=== PATIENT | female | born 1950 | race Two or more races ===

== ENCOUNTER 2025-03-03 07:03 | Inpatient (IN) | payer MEDICAID, OTHER ==
[~2025-03-03] VITALS: Ht 152.4 cm; Wt 87.5 kg
--- NOTE | 2025-03-03 07:22 | ED.PDOC ---
History of Present Illness HPI Comments 74 year old female presents to the ED via EMS with a chief complaint of generalized weakness onset 2 days. Per EMS, patient has been experiencing generalized weakness the past 2 days, worsen this morning, was not able to ambulate without assistance. She is also experiencing constipation, polyuria, nausea. Upon EMS arrival BP was 200/100, upon ED arrival 174 systolic. PMHx HTN, DM. Denies vomiting, diarrhea, abdominal pain, chest pain, shortness of breath, dizziness, fevers, chills, hematuria, dysuria. No other symptoms or modifying factors present at this time. 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 LEAD History: Denies all HUMAN FACTORS ADVISOR LEAD Hx Family History Family History: Reviewed,noncontributory to illness, No family hx of Cancer, No family hx of DM, No family hx of Heart mike, No family hx of HTN, No family hx ofKidney mike, No family hx of Liver mike, No family hx of Lung mike, No family hx of Stroke Social History Smoker: Non-Smoker Alcohol: Denies ETOH Use Drugs: Denies Drug Use Lives In: Home Constitutional: reports: weakness; denies: chills, diaphoresis, fatigue, fever, malaise, sweats, others EENTM: denies: blurred vision, double vision, ear bleeding, ear discharge, ear drainage, ear pain, ear ringing, eye pain, eye redness, hearing loss, mouth pain, mouth swelling, nasal discharge, nose bleeding, nose congestion, nose pain, photophobia, tearing, throat pain, throat swelling, voice changes, others Respiratory: denies: cough, hemoptysis, orthopnea, SOB at rest, shortness of breath, SOB with excertion, stridor, wheezing, others Cardiovascular: denies: chest pain, dizzy spells, diaphoresis, Dyspnea on exertion, edema, irregular heart beat, left arm pain, lightheadedness, palpitations, PND, syncope, others Gastrointestinal: reports: constipated, nausea; denies: abdomen distended, abdominal pain, blood streaked bowels, diarrhea, dysphagia, difficulty swallowing, hematemesis, melena, poor appetite, poor fluid intake, rectal bleeding, rectal pain, vomiting, others Genitourinary: reports: others (polyuria); denies: abnormal vagina bleeding, burning, dyspareunia, dysuria, flank pain, frequency, hematuria, incontinence, pain, , vagina discharge, urgency Neurological: reports: weakness; denies: dizziness, fainting, headache, left sided numbness, left sided weakness, numbness, paresthesia, pre-existing deficit, right sided numbness, right sided weakness, seizure, speech problems, tingling, tremors, others Musculoskeletal: denies: back pain, gout, joint pain, joint swelling, muscle pain, muscle stiffness, neck pain, others Integumetry: denies: bruises, change in color, change in hair/nails, dryness, laceration, lesions, lumps, rash, wounds, others Allergic/Immunocompromised: denies: Difficulty Healing, Frequent Infections, Hives, Itching, others Hematologic/Lymphatic: denies: anemia, blood clots, easy bleeding, easy bruising, swollen glands, others Endocrine: denies: excessive hunger, excessive sweating, excessive thirst, excessive urination, flushing, intolerance to cold, intolerance to heat, unexplained weight gain, unexplained weight loss, others Psychiatric: denies: anxiety, bipolar disorder, depression, hopeless, panic disorder, schizophrenia, sleepless, suicidal, others All Other Systems: Reviewed and Negative Physical Exam General Appearance: Normal HEENT: Normal ENT Inspection, Pharynx Normal, TMs Normal Neck: Full Range of Motion, Non-Tender, Normal, Normal Inspection Respiratory: Chest Non-Tender, Lungs Clear, No Accessory Muscle Use, No Respiratory Distress, Normal Breath Sounds Cardiovascular: No Edema, No JVD, No Murmur, No Gallop, Normal Peripheral Pulses, Regular Rate/Rhythm Breast Exam: Deferred Gastrointestinal: No Organomegaly, Non Tender, No Pulsatile Mass, Normal Bowel Sounds, Soft Genitalia: Deferred Pelvic: Deferred Rectal: Deferred Extremities: No calf tenderness, Normal capillary refill, Normal inspection, Normal range of motion, Non-tender, No pedal edema Musculoskeletal : Apperance: Normal 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 Was a procedure done?: No Differential Dx Considerations may include: deconditioning, hyperglycemia, hypercalcemia, uti, dehydration, electrolyte disorders X-Ray, Labs, Meds, VS Vital Signs Date Time Temp Pulse Resp B/P (MAP) Pulse Ox O2 Delivery O2 Flow Rate FiO2 03/03/25 10:00 77 16 145/54 (84) 98 03/03/25 09:23 98 Room Air* 0 03/03/25 09:11 71 03/03/25 09:00 97.8 68 16 153/53 (86) 98 97.8 03/03/25 08:20 85 21 97 Room Air* 0 21 03/03/25 08:20 98.2 85 21 152/73 (99) 97 98.2 03/03/25 07:12 98.2 84 20 175/77 (109) 98 98.2 03/03/25 07:09 83 Lab Test 03/03/25 10:26 03/03/25 08:21 03/03/25 07:30 03/03/25 07:21 Range/Units Troponin I High Sensitivity 6 5 5 </=34 ng/L White Blood Count 9.2 4.4-10.8 10^3/uL Red Blood Count 4.28 4.0-5.20 10^6/uL Hemoglobin 12.2 12.2-16.2 g/dL Hematocrit 36.0 36.0-46.0 % Mean Corpuscular Volume 84.2 80.0-100.0 fL Mean Corpuscular Hemoglobin 28.4 28.0-32.0 pg Mean Corpuscular Hemoglobin Concent 33.8 32.0-36.0 g/dL Red Cell Distribution Width 14.8 H 11.8-14.3 % Platelet Count 226 140-450 10^3/uL Mean Platelet Volume 8.6 6.9-10.8 fL Neutrophils (%) (Auto) 68.0 37.0-80.0 % Lymphocytes (%) (Auto) 24.0 10.0-50.0 % Monocytes (%) (Auto) 6.5 0.0-12.0 % Eosinophils (%) (Auto) 1.2 0.0-7.0 % Basophils (%) (Auto) 0.3 0.0-2.0 % Neutrophils # (Auto) 6.2 1.6-8.6 10 ^3/uL Lymphocytes # (Auto) 2.2 0.4-5.4 10 ^3/uL Monocytes # (Auto) 0.6 0-1.3 10 ^3/uL Eosinophils # (Auto) 0.1 0-0.8 10 ^3/uL Basophils # (Auto) 0 0-0.2 10 ^3/uL Nucleated Red Blood Cells 0.0 % Sodium Level 144 136-145 mmol/L Potassium Level 4.2 3.5-5.1 mmol/L Chloride Level 108 H 98-107 mmol/L Carbon Dioxide Level 23 20-31 mmol/L Anion Gap 13 5-15 Blood Urea Nitrogen 19 9-23 mg/dL Creatinine 0.91 0.550-1.02 mg/dL Glomerular Filtration Rate Calc 66 >90 mL/min BUN/Creatinine Ratio 20.9 H 10.0-20.0 Serum Glucose 165 H 74-106 mg/dL Calcium Level 10.1 8.7-10.4 mg/dL Urine Color Colorless Yellow Urine Clarity Clear Clear Urine pH 6.0 5.0-9.0 Urine Specific [place] 1.005 1.001-1.035 Urine Protein Negative Negative Urine Ketones Negative Negative Urine Blood Negative Negative /uL Urine Nitrite Negative Negative Urine Bilirubin Negative Negative Urine Urobilinogen Normal Negative mg/dL Urine Leukocyte Esterase Negative Negative /uL Urine RBC <1 0 - 4 /hpf Urine Microscopic WBC < 1 0-5 /HPF Urine Squamous Epithelial Cells Few <5 /hpf Urine Bacteria Few H None Seen /hpf Urine Glucose 1+ H Normal mg/dL Urine Opiates Screen Neg NEGATIVE Urine Fentanyl Screen Neg NEGATIVE Urine Barbiturates Screen Neg NEGATIVE Urine Phencyclidine Screen Neg NEGATIVE Urine Amphetamines Screen Neg NEGATIVE Urine Benzodiazepines Screen Neg NEGATIVE Urine Cocaine Screen Neg NEGATIVE Urine Cannabinoids Screen Neg NEGATIVE Current Medications Medications (Trade) Dose Ordered Sig/Lisbeth Route Start Time Stop Time Status Last Admin Sodium Chloride 1,000 ml @ 150 mls/hr Q6H40M ONCE IV 03/03/25 07:15 03/03/25 13:54 DC 03/03/25 07:40 [facility] [id number] [place] [id number] Ph: [phone] DIAGNOSTIC IMAGING Diagnostic Imaging Report : [id number] Signed PATIENT: UMAIR CAVANAUGH ACCT: [id number] UNIT: [id number] : 1950 LOC: ER ROOM / BED: / AGE / SEX: 74 / F ADM STATUS: REG ER SERVICE 4 ORDERING PHYSICIAN: NITHYA HENRIQUEZ MD PROCEDURE(s): CXRP - CHEST PORTABLE REASON: weakness ORDER NUMBER(s): [id number], ACCESSION NUMBER(s): [id number] CHEST RADIOGRAPH Indication: weakness Technique: Single frontal view of the chest was obtained COMPARISON: None FINDINGS: Lines and Tubes: None Lungs: Clear Pleura: No effusion. No pneumothorax. Cardiomediastinal contours: Unremarkable Bones: Unremarkable IMPRESSION: No acute disease. ATED BY: BRANDON MILLER MD DICTATED DATE/TIME: 03/03/25749 SIGNED BY: BRANDON MILLER MD SIGNED DATE/TIME: 03/03/25749 CC: Time of 1ST Reevaluation: 07:45 Reevaluation 1ST: Unchanged Patient Education/Counseling: Diagnosis, Treatment, Prognosis Family Education/Counseling: No Family Present Additional Information The following tests were ordered, and results were reviewed by me: EKG, TROP-x3, CBC, UA, BMP, XY CHEST Additional Information was gathered from interviewing the following independent historians: EMS, son I reviewed and agreed with the following test results read by other providers: XY CHEST I discussed treatment and results with medical personnel and: patient, son Comprehensive systems review obtained and negative except for what is stated in the HPI. SEPSIS Sepsis Screen Physician Orders Electrocardigram (03/03/25 07:11) Chest Portable (03/03/25 07:15) Accucheck (03/03/25 07:15) Vital Signs Date Time Temp Pulse Resp B/P (MAP) Pulse Ox O2 Delivery O2 Flow Rate FiO2 03/03/25 10:00 77 16 145/54 (84) 98 03/03/25 09:23 98 Room Air* 0 21 03/03/25 09:11 71 03/03/25 09:00 97.8 68 16 153/53 (86) 98 97.8 03/03/25 08:20 85 21 97 Room Air* 0 21 03/03/25 08:20 98.2 85 21 152/73 (99) 97 98.2 03/03/25 07:12 98.2 84 20 175/77 (109) 98 98.2 03/03/25 07:09 83 Laboratory Tests Test 03/03/25 07:30 White Blood Count 9.2 10^3/uL (4.4-10.8) Medications Medications Dose Ordered Sig/Lisbeth Route Start Time Stop Time Status Last Admin Dose Admin Sodium Chloride 1,000 ml @ 150 mls/hr Q6H40M ONCE IV 03/03/25 07:15 03/03/25 13:54 DC 03/03/25 07:40 Departure 1 Departure Time of Disposition: 14:01 Impression: Primary Impression: Generalized weakness Additional Impressions: Polyuria Poorly-controlled hypertension Disposition: ADMITTED INPATIENT Admit to: Med Surg Condition: Stable Discharged With: Self Critical Care Note Critical Care Time?: No Stability Stability form required: No I personally scribed for NITHYA HENRIQUEZ MD ([email or web address]) on 03/03/25 at 07:22. Electronically submitted by Barb Schmidt ([email or web address]). I personally scribed for NITHYA HENRIQUEZ MD ([email or web address]) on 03/03/25 at 07:23. Electronically submitted by Barb Schmidt ([email or web address]). I personally scribed for NITHYA HENRIQUEZ MD ([email or web address]) on 03/03/25 at 08:01. Electronically submitted by Barb Schmidt ([email or web address]). NITHYA HENRIQUEZ MD Mar 03, 2025 07:22
[2025-03-03] MEDS: SODIUM CHLORIDE 0.9% 1,000 ML IV ONE (07:40)
[2025-03-03 07:45] LABS: Basophils # (auto) 0 10 ^3/uL (0-0.2); Basophils % (auto) 0.3 % (0.0-2.0); Eosinophils # (auto) 0.1 10 ^3/uL (0-0.8); Eosinophils % (auto) 1.2 % (0.0-7.0); Hemoglobin 12.2 g/dL (12.2-16.2); Lymphocytes # (auto) 2.2 10 ^3/uL (0.4-5.4); Mean Corpuscular Hemoglobin 28.4 pg (28.0-32.0); Mean Corpuscular Hgb Conc. 33.8 g/dL (32.0-36.0); Mean Corpuscular Volume 84.2 fL (80.0-100.0); Monocytes # (auto) 0.6 10 ^3/uL (0-1.3); Monocytes % (auto) 6.5 % (0.0-12.0); Neutrophils # (auto) 6.2 10 ^3/uL (1.6-8.6); Platelet Count (auto) 226 10^3/uL (140-450); Red Blood Cells 4.28 10^6/uL (4.0-5.20); Red Cell Distribution Width 14.8 % (11.8-14.3); White Blood Cell 9.2 10^3/uL (4.4-10.8)
[2025-03-03 07:50] LABS: Potassium 4.2 mmol/L (3.5-5.1); Sodium 144 mmol/L (136-145)
[2025-03-03 07:51] LABS: Anion Gap 13 (5-15); Calcium 10.1 mg/dL (8.7-10.4); Carbon Dioxide 23 mmol/L (20-31)
--- NOTE | 2025-03-03 07:53 | DVH ---
CHEST RADIOGRAPH Indication: weakness Technique: Single frontal view of the chest was obtained COMPARISON: None FINDINGS: Lines and Tubes: None Lungs: Clear Pleura: No effusion. No pneumothorax. Cardiomediastinal contours: Unremarkable Bones: Unremarkable IMPRESSION: No acute disease.
[2025-03-03 07:56] LABS: BUN/Creatinine Ratio 20.9 (10.0-20.0); Blood Urea Nitrogen 19 mg/dL (9-23); Chloride 108 mmol/L (98-107); Glucose 165 mg/dL (74-106)
[2025-03-03 08:20] VITALS: PULSE 85; RESP 21; O2SAT 97
[2025-03-03 10:53] LABS: Urine Bacteria FEW /hpf (None Seen); Urine Blood Negative /uL (Negative); Urine Clarity Clear (Clear); Urine Color Colorless (Yellow); Urine Protein, UAD Negative (Negative); Urine Specific Gravity 1.005 (1.001-1.035); Urine Squamous Epithelial Cell FEW /hpf (<5); Urine Urobilinogen Normal (Negative); Urine WBC < 1 /HPF (0-5)
[2025-03-03] MEDS ORDERED: HYDROcodone-ACET 5/325MG TAB PO PRN (11:30)
[2025-03-03] MEDS ORDERED: ONDANSETRON HCL 4 MG/2 ML VIAL IV PRN (11:30)
[2025-03-03] MEDS ORDERED: DEXTROSE (50%) 50ML SYRG IV PRN (11:30)
[2025-03-03] MEDS ORDERED: ACETAMINOPHEN 325 MG TAB PO PRN (11:30)
--- NOTE | 2025-03-03 11:54 | DVHHP2 ---
History of Present Illness History of Present Illness 74 year old female PMHx HTN, DM presents to the ED via EMS with a chief complaint of generalized weakness with near syncope onset 1 night. Per EMS, patient has been experiencing generalized weakness the past 2 days, worsen this morning, was not able to ambulate without assistance. During assisstance ambulating, she experienced near syncope/presyncope event prompting EMS call. 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 She is also experiencing constipation, polyuria, nausea. Upon EMS arrival BP was 200/100, upon ED arrival 174 systolic. Denies vomiting, diarrhea, abdominal pain, chest pain, shortness of breath, dizziness, fevers, chills, hematuria, dysuria. No other symptoms or modifying factors present at this time. Review of Systems Allergies: Coded Allergies: NO KNOWN ALLERGIES (Unverified , 03/03/25) Exam Vital Signs Vital Signs Date Time Temp Pulse Resp B/P (MAP) Pulse Ox O2 Delivery O2 Flow Rate FiO2 03/03/25 10:00 77 16 145/54 (84) 98 03/03/25 09:23 Room Air* 0 21 03/03/25 09:00 97.8 97.8 Exam GEN: Healthy appearing, well-developed, NAD. HEENT: NC/AT; MMM. CV: RRR, no m/r/g. LUNGS: CTAB, no w/r/c. ABD: Soft, NT/ND, NBS, no masses or organomegaly. EXT: skin Warm, well perfused. no rashes. No clubbing, cyanosis, or edema. NEURO: Ambulating with no limitations. No focal deficits. Labs/Xrays Labs Test 03/03/25 10:26 03/03/25 07:30 03/03/25 07:21 Range/Units Troponin I High Sensitivity 6 </=34 ng/L White Blood Count 9.2 4.4-10.8 10^3/uL Red Blood Count 4.28 4.0-5.20 10^6/uL Hemoglobin 12.2 12.2-16.2 g/dL Hematocrit 36.0 36.0-46.0 % Mean Corpuscular Volume 84.2 80.0-100.0 fL Mean Corpuscular Hemoglobin 28.4 28.0-32.0 pg Mean Corpuscular Hemoglobin Concent 33.8 32.0-36.0 g/dL Red Cell Distribution Width 14.8 H 11.8-14.3 % Platelet Count 226 140-450 10^3/uL Mean Platelet Volume 8.6 6.9-10.8 fL Neutrophils (%) (Auto) 68.0 37.0-80.0 % Lymphocytes (%) (Auto) 24.0 10.0-50.0 % Monocytes (%) (Auto) 6.5 0.0-12.0 % Eosinophils (%) (Auto) 1.2 0.0-7.0 % Basophils (%) (Auto) 0.3 0.0-2.0 % Neutrophils # (Auto) 6.2 1.6-8.6 10 ^3/uL Lymphocytes # (Auto) 2.2 0.4-5.4 10 ^3/uL Monocytes # (Auto) 0.6 0-1.3 10 ^3/uL Eosinophils # (Auto) 0.1 0-0.8 10 ^3/uL Basophils # (Auto) 0 0-0.2 10 ^3/uL Nucleated Red Blood Cells 0.0 % Sodium Level 144 136-145 mmol/L Potassium Level 4.2 3.5-5.1 mmol/L Chloride Level 108 H 98-107 mmol/L Carbon Dioxide Level 23 20-31 mmol/L Anion Gap 13 5-15 Blood Urea Nitrogen 19 9-23 mg/dL Creatinine 0.91 0.550-1.02 mg/dL Glomerular Filtration Rate Calc 66 >90 mL/min BUN/Creatinine Ratio 20.9 H 10.0-20.0 Serum Glucose 165 H 74-106 mg/dL Calcium Level 10.1 8.7-10.4 mg/dL Urine Color Colorless Yellow Urine Clarity Clear Clear Urine pH 6.0 5.0-9.0 Urine Specific [place] 1.005 1.001-1.035 Urine Protein Negative Negative Urine Ketones Negative Negative Urine Blood Negative Negative /uL Urine Nitrite Negative Negative Urine Bilirubin Negative Negative Urine Urobilinogen Normal Negative mg/dL Urine Leukocyte Esterase Negative Negative /uL Urine RBC <1 0 - 4 /hpf Urine Microscopic WBC < 1 0-5 /HPF Urine Squamous Epithelial Cells Few <5 /hpf Urine Bacteria Few H None Seen /hpf Urine Glucose 1+ H Normal mg/dL Assessment/Plan Assessment/Plan Presyncope/near syncope Generalized Weakness Poorly controlled hypertension Diabetes mellitus - TSH, blood pressure monitoring - telemetry, EKG - PT eval - orthostatics checks - continue home meds - blood pressure control and monitoring - IV fluids maintenance - hold oral diabetic medications, sliding scale insulin a.c. HS Low carb diabetic diet GI prophylaxis needed tolerating p.o. Lovenox 40 for DVT prophylaxis Tele Full code Plan discussed with: Patient Date of Service: Mar 03, 2025 Billing Provider: FABRICIO OLMEDO MD Common Visit Codes: 58097-GULBADS INP/OBS CARE (HIGH) Secondary Visit Codes: 79221-UQFRSLPH CARE PLAN 30 MINUTES FABRICIO OLMEDO MD Mar 03, 2025 11:54
[2025-03-03 12:23] LABS: Amphetamine Screen, Urine Neg (NEGATIVE); Barbiturate Scree,Urine Neg (NEGATIVE); Benzodiazephine Screen, Urine Neg (NEGATIVE); Cannabinoid Screen, Urine Neg (NEGATIVE); Cocaine Screen, Urine Neg (NEGATIVE); Opiate Scree,Urine Neg (NEGATIVE); Phencyclidine Screen, Urine Neg (NEGATIVE)
[2025-03-03] MEDS: InsuLIN REG 1unit/0.01ml Soln (100units/ml) SC SCH (14:48)
[2025-03-03] MEDS: ACCU-CHEK COMFORT CURVE STRIP VI SCH (14:51)
[2025-03-03 16:54] VITALS: BP 153/57; PULSE 66; PULSE 69; RESP 18; TEMP 98.4; O2SAT 95
[2025-03-03] MEDS ORDERED: METF-372 PO (17:59)
[2025-03-03 20:00] VITALS: PULSE 59; PULSE 80; RESP 16
[2025-03-03] MEDS ORDERED: LOSA-534 PO (21:54)
[2025-03-03] MEDS ORDERED: AMLO1TAB22 PO (21:54)
[2025-03-04 01:00] VITALS: BP 119/58; PULSE 60; RESP 19; TEMP 97.8; O2SAT 92
[2025-03-04 05:00] VITALS: BP 129/66; PULSE 65; RESP 17; TEMP 98.5; O2SAT 93
--- NOTE | 2025-03-04 05:48 | ECG ---
[facility] Test Date: 2025-03-03 Test Time: 07:09:13 Pat Name: UMAIR CAVANAUGH Department: ED Room: 0278T B Gender: F Plate Filler: BOLA : 1950 Requested By: EMERGENCY EMERGENCY Order Number: [id number] Reading MD: Ancelmo Marshall Measurements Intervals [place] Rate: 83 P: 41 AR: 161 QRS: 54 QRSD: 76 T: 31 QT: 362 QTc: 426 Interpretive Statements Sinus rhythm Anteroseptal infarct, old Electronically Signed On 03-05-2025 22:45:24 PDT by Ancelmo Marshall Please click the below link to view image of tracing.
[2025-03-04 06:50] LABS: Basophils # (auto) 0 10 ^3/uL (0-0.2); Basophils % (auto) 0.1 % (0.0-2.0); Eosinophils # (auto) 0.1 10 ^3/uL (0-0.8); Eosinophils % (auto) 2.1 % (0.0-7.0); Hematocrit 34.8 % (36.0-46.0); Hemoglobin 11.7 g/dL (12.2-16.2); Lymphocytes # (auto) 2.3 10 ^3/uL (0.4-5.4); Lymphocytes % (auto) 35.8 % (10.0-50.0); Mean Corpuscular Hemoglobin 28.6 pg (28.0-32.0); Mean Corpuscular Hgb Conc. 33.6 g/dL (32.0-36.0); Mean Corpuscular Volume 85.1 fL (80.0-100.0); Monocytes # (auto) 0.5 10 ^3/uL (0-1.3); Monocytes % (auto) 7.2 % (0.0-12.0); Neutrophils # (auto) 3.6 10 ^3/uL (1.6-8.6); Neutrophils % (auto) 54.8 % (37.0-80.0); Nucleated Red Blood Cells % 0.1 %; Platelet Count (auto) 203 10^3/uL (140-450); Red Blood Cells 4.09 10^6/uL (4.0-5.20); Red Cell Distribution Width 14.5 % (11.8-14.3); White Blood Cell 6.5 10^3/uL (4.4-10.8)
[2025-03-04 07:00] LABS: Alanine Aminotransferase 22 U/L (7-40); Alkaline Phosphatase 57 U/L (46-116); Anion Gap 9 (5-15); Aspartate Aminotransferase 26 U/L (<34); BUN/Creatinine Ratio 18.7 (10.0-20.0); Bilirubin, Total 0.5 mg/dL (0.2-1.0); Blood Urea Nitrogen 17 mg/dL (9-23); Calcium 9.5 mg/dL (8.7-10.4); Carbon Dioxide 25 mmol/L (20-31); Potassium 4.4 mmol/L (3.5-5.1); Sodium 142 mmol/L (136-145); Total Protein 6.4 g/dL (5.7-8.2)
[2025-03-04 07:02] LABS: Chloride 108 mmol/L (98-107); Glucose 147 mg/dL (74-106)
[2025-03-04 08:00] VITALS: PULSE 76
[2025-03-04 08:52] VITALS: BP 160/41; PULSE 76; RESP 16; TEMP 98; O2SAT 93
[2025-03-04] MEDS: amLODIPine BESYLATE 5 MG TAB PO SCH (09:51)
[2025-03-04] MEDS: LOSARTAN POTASSIUM 50 MG TAB PO SCH (09:51)
[2025-03-04] MEDS: ENOXAPARIN SOD 40 MG/0.4 ML SYRINGE SC SCH (09:52)
[2025-03-04] MEDS ORDERED: LOSA-535 PO (12:48)
[2025-03-04 13:26] VITALS: BP 154/63; PULSE 79; RESP 18; TEMP 98.4; O2SAT 95
[2025-03-04 15:30] VITALS: BP 155/67; TEMP 36.9
--- NOTE | 2025-03-04 15:32 | DVHDSRES ---
Discharge Summary Date of Admission Resident Creating Document: MITALI LUNA RESIDENT Mar 03, 2025 at 11:23 Date of Discharge: Mar 04, 2025 Admitting Diagnosis hypertensive urgency Labs/Diagnostic Data: Laboratory Results Test 03/04/25 11:47 03/04/25 05:50 03/03/25 10:26 03/03/25 07:21 POC Glucose 169 mg/dl (70-106) White Blood Count 6.5 10^3/uL (4.4-10.8) Red Blood Count 4.09 10^6/uL (4.0-5.20) Hemoglobin 11.7 g/dL (12.2-16.2) Hematocrit 34.8 % (36.0-46.0) Mean Corpuscular Volume 85.1 fL (80.0-100.0) Mean Corpuscular Hemoglobin 28.6 pg (28.0-32.0) Mean Corpuscular Hemoglobin Concent 33.6 g/dL (32.0-36.0) Red Cell Distribution Width 14.5 % (11.8-14.3) Platelet Count 203 10^3/uL (140-450) Mean Platelet Volume 8.9 fL (6.9-10.8) Neutrophils (%) (Auto) 54.8 % (37.0-80.0) Lymphocytes (%) (Auto) 35.8 % (10.0-50.0) Monocytes (%) (Auto) 7.2 % (0.0-12.0) Eosinophils (%) (Auto) 2.1 % (0.0-7.0) Basophils (%) (Auto) 0.1 % (0.0-2.0) Neutrophils # (Auto) 3.6 10 ^3/uL (1.6-8.6) Lymphocytes # (Auto) 2.3 10 ^3/uL (0.4-5.4) Monocytes # (Auto) 0.5 10 ^3/uL (0-1.3) Eosinophils # (Auto) 0.1 10 ^3/uL (0-0.8) Basophils # (Auto) 0 10 ^3/uL (0-0.2) Nucleated Red Blood Cells 0.1 % Sodium Level 142 mmol/L (136-145) Potassium Level 4.4 mmol/L (3.5-5.1) Chloride Level 108 mmol/L (98-107) Carbon Dioxide Level 25 mmol/L (20-31) Anion Gap 9 (5-15) Blood Urea Nitrogen 17 mg/dL (9-23) Creatinine 0.91 mg/dL (0.550-1.02) Glomerular Filtration Rate Calc 66 mL/min (>90) BUN/Creatinine Ratio 18.7 (10.0-20.0) Serum Glucose 147 mg/dL (74-106) Calcium Level 9.5 mg/dL (8.7-10.4) Total Bilirubin 0.5 mg/dL (0.2-1.0) Aspartate Amino Transferase (AST) 26 U/L (<34) Alanine Aminotransferase (ALT) 22 U/L (7-40) Alkaline Phosphatase 57 U/L (46-116) Total Protein 6.4 g/dL (5.7-8.2) Albumin 4.0 g/dL (3.2-4.8) Thyroid Stimulating Hormone (TSH) 2.72 uIU/mL (0.55-4.78) Troponin I High Sensitivity 6 ng/L (</=34) Urine Color Colorless (Yellow) Urine Clarity Clear (Clear) Urine pH 6.0 (5.0-9.0) Urine Specific [place] 1.005 (1.001-1.035) Urine Protein Negative (Negative) Urine Ketones Negative (Negative) Urine Blood Negative /uL (Negative) Urine Nitrite Negative (Negative) Urine Bilirubin Negative (Negative) Urine Urobilinogen Normal mg/dL (Negative) Urine Leukocyte Esterase Negative /uL (Negative) Urine RBC <1 /hpf (0 - 4) Urine Microscopic WBC < 1 /HPF (0-5) Urine Squamous Epithelial Cells Few /hpf (<5) Urine Bacteria Few /hpf (None Seen) Urine Glucose 1+ mg/dL (Normal) Urine Opiates Screen Neg (NEGATIVE) Urine Fentanyl Screen Neg (NEGATIVE) Urine Barbiturates Screen Neg (NEGATIVE) Urine Phencyclidine Screen Neg (NEGATIVE) Urine Amphetamines Screen Neg (NEGATIVE) Urine Benzodiazepines Screen Neg (NEGATIVE) Urine Cocaine Screen Neg (NEGATIVE) Urine Cannabinoids Screen Neg (NEGATIVE) Other Laboratory Tests 03/04/25 05:50 Brief Hx & Hospital Course: A 74-year-old female with PMHx HTN, DM was admitted on 03/03/25 after an EMS- transported episode of generalized weakness with near-syncope; initial BP 220/100 , vitals otherwise stable, labs (CBC, CMP, troponin-hs, TSH) and telemetry unremarkable, no focal deficits on exam, orthostatic vitals negative, no arrhythmia or ischemia on ECG, and no secondary cause of syncope identified. She received IV fluids, tight BP monitoring. Hypertension was titrated: losartan increased to 100 mg daily, amlodipine continued. Symptoms resolved; she remained hemodynamically stable without recurrence of presyncope or weakness. Hospital Course: Observation 24 h, no complications. Discharge Medications: losartan 100 mg PO qAM, amlodipine 5 mg PO qHS (unchanged), metformin 500 mg PO BID with meals. Disposition/Condition: Home in good condition, ambulating independently, vital signs stable. Follow-up: PCP within one week for BP check; return sooner for syncope, chest pain, neuro changes, or BP > 180/100 despite meds. Patient Education: Reviewed medication changes, warning signs, and lifestyle measures; verbalizes understanding. GEN: Healthy appearing, well-developed, NAD. HEENT: NC/AT; MMM. CV: RRR, no m/r/g. LUNGS: CTAB, no w/r/c. ABD: Soft, NT/ND, NBS, no masses or organomegaly. EXT: skin Warm, well perfused. no rashes. No clubbing, cyanosis, or edema. NEURO: Ambulating with no limitations. No focal deficits. Case discussed with Dr Mckenna Operations or Procedures CHEST RADIOGRAPH Indication: weakness Technique: Single frontal view of the chest was obtained COMPARISON: None FINDINGS: Lines and Tubes: None Lungs: Clear Pleura: No effusion. No pneumothorax. Cardiomediastinal contours: Unremarkable Bones: Unremarkable IMPRESSION: No acute disease. Condition at Discharge: Stable Final Diagnosis/Problems List hypertensive urgency Presyncope/near syncope Generalized Weakness Poorly controlled hypertension Diabetes mellitus Discharge Disposition: Home Discharge Instruct/Medications Diet: Consistent carbohydrate, Cardiac 2g Na,low cholest Activity: Light activity Follow Up/Referral: fu with pcp Medications: see prescription Discharge Statement: "Patient was advised to return to the ER or call 911 if any headaches, dizziness, shortness of breath, chest pain, abdominal pain, bleeding, fevers, or worsening of medical condition. Patient was counseled about treatment plan, medications, possible side effects, patientverbalized understanding. All questions were answered to the best of my ability. This discharge took greater then 30 minutes in planning, reviewing documentation, counseling the patient, and discussing with other team members." ASSESSMENT ASSESSMENT Assessment hypertesnive urgency presyncope MITALI LUNA RESIDENT Mar 04, 2025 15:32
== END 2025-03-04 16:04 | disposition home or self-care (01) | DRG 48 ==
LOC: EDBD 07:03 → ER 07:03 → OVERFLOW 11:23 → TELE-WESTW 16:26
PROVIDERS: ADMIT Student in an Organized Health Care Education/Training Program; ATTEND Student in an Organized Health Care Education/Training Program
DX: G90.89 Other disorders of autonomic nervous system (principal); E11.9 Type 2 diabetes mellitus without complications; I16.0 Hypertensive urgency; I10 Essential (primary) hypertension
CPT/HCPCS: 36415; 71045; 80048; 80053; 80307; 81001; 82962; 84443; 84484; 85025; 93005; 96360; 97163; G0378; J1815